=== PATIENT | female | born 1965 | race Caucasian/White ===

== ENCOUNTER → 2017-07-07 | Outpatient (CLI) | payer MEDICARE ==
[~2017-07-07] MED LIST: CIPRO 500MG TA500 MG PO
--- NOTE | 2017-07-09 10:17 | RADIOLOGY REPORT PS360 ---
US BREAST-RT COMPLETE W/AXILLA, DIG MAMM-DX RAFIQ W/CAD HISTORY: 6 MONTH F/U palpable mass right breast Patient Age: 51 years: Female Ordering Physician: SAMANTHA GOODEN TECHNIQUE: Palpable area/masses at superior and medial right breast. Less than 1 week palpable COMPARISON June:July DIAGNOSTIC BILATERAL MAMMOGRAM with spot views right breast Background of low-density breast with minimal fibroglandular elements bilaterally RIGHT BREAST mammogram with Spot views on right The palpable mass 11:00 is Labeled A at the anterior right breast towards upper-outer quadrant- seen just beneath the skin right breast & measures up to 2.2 cm on spot views cm with some scattered small site likely areas or lobulation at its margin. Palpable area labeled B at the medial right breast 12 mm size. LEFT BREAST No new areas of concern at the left breast. Generalized fatty replacement low-density breast with scattered small nodes throughout the deep axillary left breast are similar to studies dating back to 2010 ... ULTRASOUND RIGHT BREAST. Including axillary survey At 11:00. There is a large 3 cm length x 1.1 cm AP x 2.5 cm transverse. This corresponds with the area labeled a on mammography. This Thick walled bilobed area with fluid & mixed density centrally.,. Reflect a resolving hematoma given its ultrasound appearance vs inflamed cystic lesion/area or generous area of focal fat necrosis., However I understand is been no trauma nor bruising at this site labeled a, 11:00.. No history or other features otherwise to support hematoma about the wrists a firm palpable area.. No recent well-defined trauma in this area . It is just beneath the skin and should be readily palpable. Ultrasound appearance certainly is suggestive of a hematoma but clinical history may not support such and I understand is quite firm hard palpable area. Can be followed again in 6-8 weeks with ultrasound however proceeding ultrasound-guided biopsy is a strong consideration. Although preferred not to intervene with hematomas at this is felt to be the etiology clinically. In either case this is significant change since last years study.. At 2:00 there is a smaller similar area. Slightly irregular thick wall cystic area.. Could reflect resolving hematoma given this appearance. And the patient does the knowledge grandbaby pinching this area. However requires close follow-up with low low threshold for aspiration and biopsy if persists. This corresponds with area labeled B. It measures up to 2.2 cm on ultrasound. At 8:00 central subtle slightly hyperechoic area just beneath the skin I favor more likely lipoma measuring up to nearly 2 cm length maximally x1 cm x 0.4. Centimeter. I doubt this is of significance & can be follow 12:00. Small hypoechoic area likely lipoma just make the skin measuring 9 mm Axillary survey a nonspecific appearing node is seen measuring up to 1.47 cm maximum length. Slightly hypoechoic appearance throughout with less than optimally delineated fatty hilum.. This will require follow-up as well I would note that the previous ultrasound study from 2016 showed scattered lipomas this and the overall appearance of features thus does raise the possibility of fat necrosis at these areas described above.. IMPRESSION 1. Right breast:. 2 palpable areas are seen at the Right Breast.: AREA LABELED A: This largerfirm palpable lobulated area at 11:00 just beneath the skin. It measures 2.2 cm on mammography and and nearly 3 cm on ultrasound. Thick walled with cystic debris filled central portion. This certainly could reflect a resolving hematoma given its ultrasound appearance. But I understand there is no trauma or bruising here. Prominent area of fat necrosis also considered. An inflamed cyst should yield a more evident cellulitis. Cannot totally exclude neoplasm but I believe this is much less likely at this point. Requires clinical correlation.-Particularly since there are 2 similar areas I suspect secondary to trauma particularly if patient on aspirin or blood thinners This will require close follow-up and low threshold for aspiration if it does not report improved within the next 6-8 weeks. At this point Recommend repeat ultrasound 6-8 weeks.. (Please feel free to discuss with me on site [facility] 07/10/17) AREA LABELED B: Smaller palpable area at 2:00 measuring up to 13 mm mm on mammography but more pronounced up to 2.2 cm on ultrasound. It has a similar character with thickened wall and cystic component centrally. Patient does report minor trauma here. Again suspect resolving hematoma versus fat necrosis most likely etiology. Other entity less likely. Follow-up ultrasound 6-8 weeks at this point suggested 2.. Nonspecific diffusely hypoechoic lymph node towards right axilla also warrants a detailed survey on the follow-up ultrasound. 3. Left breast stable unremarkable
== END ==
LOC: RAD 13:09
DX: N63 Unspecified lump in breast (principal)
CPT/HCPCS: G0204